=== PATIENT | female | born 1990 | race Two or more races ===

== ENCOUNTER 2017-06-29 05:32 | Inpatient (IN) | payer SELFPAY ==
[~2017-06-29] VITALS: Ht 158.8 cm; Wt 70.1 kg
[2017-06-29] MEDS ORDERED: fentaNYL PF VIAL 100 MCG/2 ML VIAL IV PRN (06:00)
[2017-06-29] MEDS ORDERED: 0.9 % SODIUM CHLORIDE 10 ML DISP.SYRIN. IV PRN ×2 (06:00→16:30)
[2017-06-29] MEDS ORDERED: ZOLPIDEM 5 MG TABLET. PO PRN ×2 (06:00→16:30)
[2017-06-29] MEDS ORDERED: OXYTOCIN 30 UNIT/500 ML PREMIX 500 ML IV PRN ×3 (06:00→16:30)
[2017-06-29] MEDS ORDERED: IBUPROFEN 600 MG TABLET. PO PRN (06:00)
[2017-06-29] MEDS ORDERED: DOCUSATE SODIUM 283 MG/5 ML ENEMA. PR PRN (06:00)
[2017-06-29] MEDS ORDERED: ONDANSETRON PF 4 MG/2 ML VIAL. IV PRN (06:00)
[2017-06-29] MEDS ORDERED: LIDOCAINE 1% PF 30 ML VIAL. INJ PRN (06:00)
[2017-06-29] MEDS ORDERED: MAG HYDROX/ALUMINUM HYD/SIMETH 30 ML ORAL.SUSP PO PRN ×2 (06:00→16:30)
[2017-06-29] MEDS ORDERED: BUTORPHANOL 2 MG/ML VIAL. IV PRN (06:00)
[2017-06-29] MEDS ORDERED: ACETAMINOPHEN 325 MG TABLET. PO PRN ×2 (06:00→16:30)
[2017-06-29] MEDS ORDERED: TERBUTALINE 1 MG/ML VIAL. SQ PRN (06:00)
[2017-06-29 06:08] VITALS: BP 110/66
[2017-06-29] MEDS ORDERED: FERR-26 PO (07:54)
[2017-06-29] MEDS ORDERED: PNV1TABL25 PO (07:54)
[2017-06-29] MEDS ORDERED: LEVO25TA4 PO (07:56)
[2017-06-29 08:02] LABS: BASO % 1 % (0-3); EOS % 1 % (0-3); HEMOGLOBIN 11.8 g/dL (12.0-15.5); LYMPH # 1.4 x10^3/uL (1.0-4.8); LYMPH % 17 % (24-48); MEAN CORPUSCULAR HEMOGLOBIN 29 pg (25-35); MEAN CORPUSCULAR HGB CONC 33 g/dL (31-37); MEAN CORPUSCULAR VOLUME 89 fL (79-100); MONO % 13 % (0-9); NEUT % 69 % (31-73); PLATELET COUNT 193 x10^3/uL (140-400); RED BLOOD COUNT 4.06 x10^6/uL (3.50-5.40)
[2017-06-29] MEDS: IV RINGERS,LACTATED 1000ML 1,000 ML IV SCH ×3 (08:06→15:46)
[2017-06-29] MEDS ORDERED: ROPIVacaine 0.2% IN 0.9%NACL PF 40 MG/20 ML DISP.SYRIN. ONE ×2 (13:41→14:00)
[2017-06-29] MEDS ORDERED: L&D EPIDURAL CASSETTE 100 ML EP ONE (13:41)
[2017-06-29] MEDS ORDERED: L&D EPIDURAL CASSETTE 100 ML PUMP.RESVR. EP ONE (14:00)
[2017-06-29] MEDS ORDERED: MAGNESIUM HYDROXIDE 2,400 MG/30 ML ORAL.SUSP. PO PRN (16:30)
[2017-06-29] MEDS ORDERED: SIMETHICONE 80 MG TAB.CHEW PO PRN (16:30)
[2017-06-29] MEDS ORDERED: PHENYLEPH/MINERAL OIL/PETROLAT RECTAL OINTMENT 28GM TUBE. RC PRN (16:30)
[2017-06-29] MEDS ORDERED: diphenhydrAMINE HCL 25 MG CAPSULE PO PRN (16:30)
[2017-06-29] MEDS ORDERED: HYDROCORTISONE 1% TOPICAL OINTMENT 30GM TUBE. TP PRN (16:30)
[2017-06-29] MEDS ORDERED: BENZOCAINE 20% TOPICAL AEROSOL SPRAY 57GM CAN. TP PRN (16:30)
--- NOTE | 2017-06-29 16:32 | PDOC ---
VAGINAL DELIVERY DATE DATE: 06/29/17 TIME: 16:31 : 3 Para: 2 EDC: Jul 06, 2017 VAGINAL DELIVERY: VTX VACCUM ASSISTED: No PLACENTA: Spontaneous SEX: Female WEIGHT Weight [ ] Nuchal Cord: Yes, Times 1, Loose Amniotic Fluid: Clear PAIN: Epidural EPISIOTOMY: No EXTENSION: Yes EBL 300cc COMPLICATIONS None CONDITION Stable Signs of Intrauterine Infectio: None Shoulder Dystocia: No DIAGNOSIS TIUP Del Problems: STEVEN AKBAR MD Jun 29, 2017 16:32
[2017-06-29] MEDS: FERROUS SULFATE 325 MG TABLET. PO SCH (17:00)
[2017-06-29 19:15] VITALS: BP 103/52
[2017-06-29 20:15] VITALS: BP 98/54
[2017-06-29] MEDS: IBUPROFEN 800 MG TABLET. PO SCH (22:31)
[2017-06-30 01:35] VITALS: BP 89/48
[2017-06-30] MEDS: HYDROcodone/APAP 5/325MG 1 TAB TABLET PO PRN ×4 (03:24→20:29)
[2017-06-30 05:49] VITALS: BP 91/44
[2017-06-30 07:26] LABS: RPR REFLEX Non Reactive (Non Reactive)
--- NOTE | 2017-06-30 08:05 | PDOC ---
Provider Note Provider Note No complaints VSS uterus NTTP FU in AM Vital Sign - Last 24 Hours 06/29/17 06/29/17 06/30/17 06/30/17 19:15 20:15 01:35 03:24 Temp 98.4 99.7 98.1 98.4 99.7 98.1 Pulse 74 76 74 Resp 18 18 18 18 B/P (MAP) 103/52 (69) 98/54 (69) 89/48 (62) Pulse Ox 96 96 96 O2 Delivery Room Air Room Air Room Air Room Air 06/30/17 06/30/17 04:25 05:49 Temp 97.5 97.5 Pulse 66 Resp 18 18 B/P (MAP) 91/44 (60) Pulse Ox 96 O2 Delivery Room Air Room Air Intake and Output 06/29/17 06/29/17 06/30/17 15:00 23:00 07:00 Intake Total 200 ml 2200 ml Balance 200 ml 2200 ml STEVEN AKBAR MD Jun 30, 2017 08:05
[2017-06-30] MEDS: FERROUS SULFATE 325 MG TABLET. PO SCH ×2 (09:10→16:09)
[2017-06-30] MEDS: IBUPROFEN 800 MG TABLET. PO SCH ×3 (09:10→22:00)
[2017-06-30 11:00] VITALS: BP 104/68
[2017-06-30 16:00] VITALS: BP 102/61
[2017-06-30 20:41] VITALS: BP 98/61
--- NOTE | 2017-07-01 03:57 | PDOC3 ---
OB DISCHARGE SUMMARY DATE OF ADMISSION: 06/29/17 DATE OF DISCHARGE: 07/01/17 REASON FOR ADMISSION: Onset of labor PROCEDURES: Ultrasound INTRAPARTUM PROCEDURES: Spontanous Vag Deliv PROCEDURES: None OPERATIONS: None DISCHARGE DIAGNOSIS: Term Delivered DISCHARGE INFORMATION: Activity, Diet HOSPITAL COURSE Unremarkable CONDITION AT DISCHARGE Stable STEVEN AKBAR MD Jul 01, 2017 03:57
--- NOTE | 2017-07-01 04:07 | PDOC1 ---
OB - History Hx of Present Care: Good Care Ultrasounds: Normal mid trimester US Obstetrical Complications: None Medical Complications: None Past Family/Social History * Past Medical, Surgical, Family and Obstetric Histories reviewed from chart. Blood Type: O+ Rubella: Immune RPR/VDRL: Negative GBS Status: Negative HBsAG: Negative OB - Chief Complaint & HPI Date of Admission: Date of Admission: Jun 29, 2017 at 05:59 Chief Complaint/History : 4 Para: 3 EDC: Jul 05, 2017 Reason for admission: induction of labor Admission Nurse Assessment Rev: Yes Problems: OB - Admission Exam Physical Exam Vitals: VS - Last 72 Hours, by Label Date Time Temp Pulse Resp B/P (MAP) Pulse Ox O2 Delivery O2 Flow Rate FiO2 06/30/17 21:30 18 Room Air 06/30/17 20:41 98.2 69 16 98/61 (73) 94 Room Air 98.2 06/30/17 20:29 18 Room Air 06/30/17 16:00 98.3 71 18 102/61 (75) 98.3 06/30/17 11:00 98.5 74 18 104/68 (80) 98.5 06/30/17 05:49 97.5 66 18 91/44 (60) 96 Room Air 97.5 06/30/17 03:24 18 Room Air 06/30/17 01:35 98.1 74 18 89/48 (62) 96 Room Air 98.1 06/29/17 20:15 99.7 76 18 98/54 (69) 96 Room Air 99.7 06/29/17 19:15 98.4 74 18 103/52 (69) 96 Room Air 98.4 06/29/17 06:08 98.9 90 20 110/66 (81) Room Air 98.9 HEENT: Normal, Nasal Mucosa Normal, Oropharynx Normal, Moist Membranes, Fontanelles Normal Heart: Regular Rate Lungs: Clear, Equal Abdomen: Gravid Extremities: Normal Pulses, No tenderness or swelling Reflexes: Normal Cervical Dilatation: 2cm Effacement: 75% Membranes: Intact Amniotic Fluid: Clear Heart Rate: Normal Accelerations: Accelerations Present Decelerations: No decelerations Short Term Variability: Present Mcfp Variability: Moderate Contractions on Admission: >10 Minutes Apart Intensity: Mild Assessment/Plan Assessment/Plan TIUP Induction ACSVD Problems: STEVEN AKBAR MD Jul 01, 2017 04:06
[2017-07-01] MEDS ORDERED: HYDR-971 PO (04:08)
[2017-07-01] MEDS ORDERED: NAPR500T3 PO (04:08)
[2017-07-01 05:21] VITALS: BP 100/68
[2017-07-01] MEDS: HYDROcodone/APAP 5/325MG 1 TAB TABLET PO PRN ×2 (06:45→11:35)
[2017-07-01] MEDS: IBUPROFEN 800 MG TABLET. PO SCH (06:45)
[2017-07-01 10:00] VITALS: BP 94/56
[2017-07-01 13:35] VITALS: BP 99/65
== END 2017-07-01 14:30 | disposition home or self-care (01) | DRG 775 ==
LOC: 3 SO LND 05:32 → OBSVTOIN 05:59 → 3 NORTH 18:54
PROVIDERS: ADMIT Specialist; ATTEND Specialist
PROC: 10E0XZZ Delivery of Products of Conception, External Approach (ICD-10-PCS; principal; 2017-06-29)
PROC: 3E0S3CZ (ICD-10-PCS; 2017-06-29)
PROC: 00HU33Z Insertion of Infusion Device into Spinal Canal, Percutaneous Approach (ICD-10-PCS; 2017-06-29)
DX: O69.81X0 Labor and delivery complicated by cord around neck, without compression, not applicable or unspecified (principal); Z37.0 Single live birth; Z3A.40 40 weeks gestation of pregnancy
CPT/HCPCS: 36415; 85014; 85027; 86593; 86850; 86900; 86901; C1887; G0378; G0379; J2590; J2795; J7120